=== PATIENT | female | born 1960 | race Caucasian/White ===

== ENCOUNTER 2018-09-15 13:27 | Emergency (ER) | payer BC, OTHER ==
[2018-09-15 13:34] VITALS: BP 158/62; PULSE 69; TEMP 97.7; BMI 25.5
[2018-09-15] MEDS ORDERED: IBUPROFEN 400 MG TABLET (FP) PO ONE ×2 (15:04→15:09)
--- NOTE | 2018-09-15 15:26 | PDOC ---
History of Present Illness - General Chief Complaint: Pain, Acute Stated Complaint: RT SIDE PAIN Time Seen by Provider: 09/15/18 14:51 History Source: Patient Exam Limitations: No Limitations Past History - Past Medical History Allergies/Adverse Reactions: Allergies Allergy/AdvReac Type Severity Reaction Status Date / Time No Known Allergies Allergy Verified 09/15/18 13:34 Home Medications: Ambulatory Orders NK [No Known Home Medication] 09/15/18 - Suicide/Smoking/Psychosocial Hx Smoking History: Never smoked Information on smoking cessation initiated: No Hx Alcohol Use: No Drug/Substance Use Hx: No *Physical Exam - Vital Signs Last Vital Signs Temp Pulse Resp BP Pulse Ox 97.7 F 69 20 158/62 99 09/15/18 13:30 09/15/18 13:30 09/15/18 13:30 09/15/18 13:30 09/15/18 13:30 - Physical Exam General Appearance: No: Apparent Distress Neck: positive: Supple Respiratory/Chest: positive: Lungs Clear, Normal Breath Sounds. negative: Respiratory Distress Cardiovascular: positive: Regular Rhythm, Regular Rate, S1, S2. negative: Murmur Gastrointestinal/Abdominal: positive: Normal Bowel Sounds, Soft. negative: Tender, Distended, Guarding, Rebound, Tenderness, Mass Musculoskeletal: positive: Other (No spine TTP). negative: CVA Tenderness Neurologic: positive: Fully Oriented, Alert, Normal Mood/Affect Moderate Sedation - Procedure Monitoring Vital Signs: Procedure Monitoring Vital Signs Temperature 97.7 F 09/15/18 13:30 Pulse Rate 69 09/15/18 13:30 Respiratory Rate 20 09/15/18 13:30 Blood Pressure 158/62 09/15/18 13:30 O2 Sat by Pulse Oximetry (%) 99 09/15/18 13:30 ED Treatment Course - Medications Given in the ED: ED Medications Discontinued Medications Generic Name Dose Route Start Last Admin Trade Name Freq PRN Reason Stop Dose Admin Ibuprofen 800 mg 09/15/18 15:04 09/15/18 15:11 Motrin - PO 09/15/18 15:05 800 mg ONCE ONE Administration Medical Decision Making - Medical Decision Making 57 y/o F with hx of cholecystectomy presents with RUQ abd pain x 3 days that worse with movement (especially rotation of her trunk). Mentions having some lower back pain 2 weeks ago, for which she took an Oxycodone from her friend and that pain went away and never came back. Did not try taking anything for her abdominal pain. Denies recent trauma or heavy work. Denies fever, chills, sob, cp, n/v/d, flank pain, hematuria, dysuria. PE unremarkable Could likely be MSK pain given it is with movement; less suspicious for pancreatitis, acute liver/gallbladder pathology, PNA Patient given Motrin Advised to f/u with PCP Return precautions given 09/15/18 15:22 *DC/Admit/Observation/Transfer Diagnosis at time of Disposition: RUQ abdominal pain - Discharge Dispostion Disposition: HOME Condition at time of disposition: Stable Decision to Admit order: No - Referrals Referrals: Phuc Crump [Primary Care Provider] - 2 Days - Patient Instructions Printed Discharge Instructions: DI for Abdominal Pain-Adult - Post Discharge Activity
== END 2018-09-15 15:30 | disposition home or self-care (01) ==
LOC: JERFT 13:27
DX: R10.11 Right upper quadrant pain (principal); Z87.19 Personal history of other diseases of the digestive system
CPT/HCPCS: 99281-25

== ENCOUNTER 2022-06-28 10:11 | Emergency (ER) | payer OTHER ==
[2022-06-28 10:18] VITALS: TEMP 98; BMI 27.3
[2022-06-28] MEDS ORDERED: ACETAMINOPHEN 1000 MG/100 ML BAG IVPB ONE (12:04)
[2022-06-28] MEDS ORDERED: ACETAMINOPHEN INJECTION 100 ML IVPB ONE (12:34)
[2022-06-28 13:43] LABS: BASO % 0.7 % (0-2.0); EOS % 2.7 % (0-4.5); HEMOGLOBIN 13.6 GM/dL (10.7-15.3); LYMPH % 32.7 % (8-40); MCH 28.1 pg (25.7-33.7); MCHC 32.3 g/dl (32.0-36.0); MEAN CELL VOLUME 86.9 fl (80-96); MEAN PLT VOLUME 8.5 fl (7.5-11.1); MONO % 5.4 % (3.8-10.2); NEUT % 58.5 % (42.8-82.8); PLATELET COUNT 306 10^3/uL (134-434); RBC 4.83 M/mm3 (3.60-5.2); RDW 13.8 % (11.6-15.6); WHITE BLOOD COUNT 6.8 K/mm3 (4.0-10.0)
[2022-06-28 13:58] LABS: INR 1.13 (0.83-1.09)
[2022-06-28 14:01] LABS: ACTIVATED PTT 35.7 SECONDS (25.2-36.5)
[2022-06-28 14:05] LABS: ALBUMIN 4.2 g/dl (3.4-5.0); BLOOD UREA NITROGEN 9.8 mg/dL (7-18); CALCIUM 9.2 mg/dL (8.5-10.1)
[2022-06-28 14:08] LABS: CREATININE 0.6 mg/dL (0.55-1.3)
[2022-06-28 14:10] LABS: BILIRUBIN,TOTAL 0.5 mg/dL (0.2-1); EPI CELLS 2 /uL (0-25.1); HYALINE CASTS 0 /uL (0-3.1); PH,URINE 7.5 (5.0-8.0); TOT PROT 7.6 g/dl (6.4-8.2); URINE APPEARANCE CLEAR; URINE BACTERIA 50 /uL (0-1359); URINE BILIRUBIN NEGATIVE (NEGATIVE); URINE COLOR YELLOW; URINE GLUCOSE (UA) TRACE (NEGATIVE); URINE KETONE NEGATIVE (NEGATIVE); URINE LEUK ESTERASE TRACE (NEGATIVE); URINE NITRITE NEGATIVE (NEGATIVE); URINE PROTEIN NEGATIVE (NEGATIVE); URINE RBC 2 /uL (0-23.9); URINE UROBILINOGEN 0.2 mg/dL (0.2-1.0); URINE WBC 3 /uL (0-25.8)
[2022-06-28] MEDS ORDERED: amLODIPine BESYLATE 5 MG TABLET (FP) PO ONE (14:31)
[2022-06-28] MEDS ORDERED: amLODIPine BESYLATE 5 MG TABLET (FP) ONE (15:50)
[2022-06-28 16:05] VITALS: BP 136/77; PULSE 57; RESP 18
[2022-06-28] MEDS ORDERED: METOCLOPRAMIDE HCL INJECTION 10 MG/2 ML VIAL IVPUSH ONE (16:20)
[2022-06-28] MEDS ORDERED: KETOROLAC TROMETHAMINE 15 MG/ML VIAL IVPUSH ONE (16:20)
[2022-06-28] MEDS ORDERED: KETOROLAC TROMETHAMINE 15 MG/ML VIAL ONE (17:00)
[2022-06-28] MEDS ORDERED: METOCLOPRAMIDE HCL INJECTION 10 MG/2 ML VIAL ONE (17:00)
== END 2022-06-28 18:18 | disposition home or self-care (01) ==
LOC: JER 10:11
PROC: 3E0333Z Introduction of Anti-inflammatory into Peripheral Vein, Percutaneous Approach (ICD-10-PCS; principal; 2022-06-28)
PROC: 3E0333Z Introduction of Anti-inflammatory into Peripheral Vein, Percutaneous Approach (ICD-10-PCS; 2022-06-28)
PROC: 3E033GC Introduction of Other Therapeutic Substance into Peripheral Vein, Percutaneous Approach (ICD-10-PCS; 2022-06-28)
DX: I10 Essential (primary) hypertension (principal)
CPT/HCPCS: 0241U-QW; 36415; 70450-TC; 71046-TC-FY; 80053; 81003; 84484; 85025; 85610; 85730; 87086; 93005; 93010; 99283-25